=== PATIENT | female | born 2000 | race American Indian/Alaskan Native ===

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

== ENCOUNTER 2020-10-20 10:20 | Emergency (ER) | payer SELFPAY ==
--- NOTE | 2020-10-20 10:31 | Event Note ---
ED Screening Note ED Screening Note: suprapubic pain lmp 08/24 states she did not do home preg has no ob never been preg before pos white dc; not worried for sti This initial assessment/diagnostic orders/clinical plan/treatment(s) is/are subject to change based on patients health status, clinical progression and re- assessment by fellow clinical providers in the ED. Further treatment and workup at subsequent clinical providers discretion. Patient/guardian urged not to elope from the ED as their condition may be serious if not clinically assessed and managed. Initial orders include: ro /ectopic
[2020-10-20 10:37] VITALS: BP 136/91
[2020-10-20 12:00] LABS: Bilirubin,Urine NEG (Negative); Blood,Urine NEG (Negative); Color,Urine Yellow (Yellow); Mucus,Urine 1+ /HPF; Urobilinogen,Urine < 2.0 mg/dL (<2.0)
[2020-10-20 12:01] LABS: HCG Qualitative,Urine Positive (Negative)
--- NOTE | 2020-10-20 12:07 | Emergency Department Report ---
ED Dysuria HPI - HPI Chief Complaint: Abdominal Pain Stated Complaint: ABD PAIN, HEADACHE Time Seen by Provider: 10/20/20 10:30 Severity: Mild Symptoms: Dysuria: No, Frequency: No, Suprapubic Pain: Yes (mild cramping, int ermittently), Flank Pain: No, Fever: No, Hematuria: No, Abdominal Pain: No, Previous UTI's: No Other History: Patient is a 20-year-old female that comes to the emergency room complaining of nausea vomiting and headaches. Patient denies dysuria, back pain or abdominal pain. She indicates that over her suprapubic area she feels cramping. She denies fever or chills. She denies any vaginal discharge. She is not concerned for STIs. Last menstrual period 08/24. Patient was asked if she did a home test and she said no. Patient does not have an MANAGED SECURITY SALES CONSULTANT or primary care doctor. ED Review of Systems ROS: Stated complaint: ABD PAIN, HEADACHE Other details as noted in HPI Comment: All other systems reviewed and negative ED Past Medical Hx - Past Medical History Previous Medical History?: No - Surgical History Past Surgical History?: No - Family History Family history: no significant - Social History Smoking Status: Never Smoker Substance Use Type: None Dysuria Exam - Exam General: Vital signs noted. No distress. Alert and acting appropriately. Exam: Yes Moist Mucous Membranes, No CVA Tenderness, No Abdominal Tenderness, No Rigidity or Guarding Labs: Lab Results 10/20/20 Range/Units 10:42 Urine Color Yellow (Yellow) Urine Turbidity Slightly-cloudy (Clear) Urine pH 5.0 (5.0-7.0) Ur [place] 1.024 (1.003-1.030) Urine Protein 30 mg/dl (Negative) mg/dL Urine Glucose (UA) Neg (Negative) mg/dL Urine Ketones 20 (Negative) mg/dL Urine Blood Neg (Negative) Urine Nitrite Neg (Negative) Urine Bilirubin Neg (Negative) Urine Urobilinogen < 2.0 (<2.0) mg/dL Ur Leukocyte Esterase Tr (Negative) Urine WBC (Auto) 2.0 (0.0-6.0) /HPF Urine RBC (Auto) 3.0 (0.0-6.0) /HPF U Epithel Cells (Auto) 12.0 (0-13.0) /HPF Urine Mucus 1+ /HPF Urine HCG, Qual Positive A (Negative) ED Course Vital Signs 10/20/20 10:36 Temperature 99.1 F Pulse Rate 90 Respiratory 18 Rate Blood Pressure 136/91 [Right] O2 Sat by Pulse 98 Oximetry ED Medical Decision Making - Medical Decision Making Lab Results 10/20/20 Range/Units 10:42 Urine Color Yellow (Yellow) Urine Turbidity Slightly-cloudy (Clear) Urine pH 5.0 (5.0-7.0) Ur Specific [place] 1.024 (1.003-1.030) Urine Protein 30 mg/dl (Negative) mg/dL Urine Glucose (UA) Neg (Negative) mg/dL Urine Ketones 20 (Negative) mg/dL Urine Blood Neg (Negative) Urine Nitrite Neg (Negative) Urine Bilirubin Neg (Negative) Urine Urobilinogen < 2.0 (<2.0) mg/dL Ur Leukocyte Esterase Tr (Negative) Urine WBC (Auto) 2.0 (0.0-6.0) /HPF Urine RBC (Auto) 3.0 (0.0-6.0) /HPF U Epithel Cells (Auto) 12.0 (0-13.0) /HPF Urine Mucus 1+ /HPF Urine HCG, Qual Positive A (Negative) Vital Signs 10/20/20 10:36 Temperature 99.1 F Pulse Rate 90 Respiratory 18 Rate Blood Pressure 136/91 [Right] O2 Sat by Pulse 98 Oximetry UA noted. positive. Patient educated on the results of her test. She is quite happy at the findings. Patient verbalizes understanding of discharge plan of care including the need to follow-up with her MANAGED SECURITY SALES CONSULTANT. On discharge she has no abdominal pain. She has no nausea vomiting. She has no back pain. There is no dysuria. - Differential Diagnosis Rule out , UTI Critical care attestation.: If time is entered above; I have spent that time in minutes in the direct care of this critically ill patient, excluding procedure time. ED Disposition Clinical Impression: Disposition: DC-01 TO HOME OR SELFCARE Is pt being admited?: No Does the pt Need Aspirin: No Condition: Stable Instructions: First Trimester of , [id number], Abdominal Pain (ED) Additional Instructions: TYLENOL FOR PAIN NO DRUGS OR ALCOHOL HYDRATE WELL OVER THE COUNTER VITAMIN FOLLOW UP WITH [facility] REFERRAL BELOW Referrals: ETIENNE LE MD [Staff Physician] - 3-5 Days Time of Disposition: 12:06
== END 2020-10-20 12:13 | disposition home or self-care (01) ==
LOC: ED 10:20
DX: Z34.90 Encounter for supervision of normal pregnancy, unspecified, unspecified trimester (principal); Z79.899 Other long term (current) drug therapy
CPT/HCPCS: 81001; 81025; 99283

== ENCOUNTER 2020-10-31 14:01 | Emergency (ER) | payer SELFPAY ==
[2020-10-31 14:12] VITALS: BP 140/80
--- NOTE | 2020-10-31 14:32 | Emergency Department Report ---
ED Female HPI - General Chief complaint: Weakness Stated complaint: GEN WEAKNESS Source: EMS Mode of arrival: Ambulatory Limitations: No Limitations - History of Present Illness Initial comments: 20-year-old -[place] female who reports she is approximately 9 weeks presents to the emergency room for lower abdominal pain and vaginal spotting that started today. Patient reports she has had nausea and vomiting and has not had a bowel movement in 2 days. 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 Patient has not started her vitamins. She is 1 para 0. MD Complaint: vaginal bleeding, pelvic pain Onset/Timin -: days(s) Location: suprapubic Severity: mild Severity scale (0 -10): 4 Quality: cramping Consistency: intermittent Improves with: none Worsens with: none Are you Now?: Yes Associated Symptoms: vaginal bleeding, dysuria - Related Data Sexually active: Yes : 1 Previous Rx's Medication Instructions Recorded Last Taken Type 168/Iron/Folic/Omega3 1 each PO QDAY #90 capsule 10/31/20 Unknown Rx [One-A-Day -1 Softgel] Allergies Allergy/AdvReac Type Severity Reaction Status Date / Time No Known Allergies Allergy Unverified 07/09/13 21:45 ED Review of Systems ROS: Stated complaint: GEN WEAKNESS Other details as noted in HPI Comment: All other systems reviewed and negative ED Past Medical Hx - Past Medical History Previous Medical History?: No - Surgical History Past Surgical History?: No - Social History Smoking Status: Never Smoker Substance Use Type: None - Medications Home Medications: Home Medications Medication Instructions Recorded Confirmed Last Taken Type 168/Iron/Folic/Omega3 1 each PO QDAY #90 capsule 10/31/20 Unknown Rx [One-A-Day -1 Softgel] ED Physical Exam - General Limitations: No Limitations General appearance: alert, in no apparent distress - Head Head exam: Present: atraumatic, normocephalic - Eye Eye exam: Present: normal appearance - ENT ENT exam: Present: mucous membranes moist - Neck Neck exam: Present: normal inspection, full ROM - Respiratory Respiratory exam: Present: normal lung sounds bilaterally. Absent: respiratory distress - Cardiovascular Cardiovascular Exam: Present: regular rate, normal rhythm. Absent: systolic murmur, diastolic murmur, rubs, gallop - GI/Abdominal GI/Abdominal exam: Present: soft, tenderness, normal bowel sounds. Absent: distended - Extremities Exam Extremities exam: Present: normal inspection, full ROM - Back Exam Back exam: Present: normal inspection, full ROM - Neurological Exam Neurological exam: Present: alert, oriented X3, normal gait - Psychiatric Psychiatric exam: Present: normal affect, normal mood - Skin Skin exam: Present: warm, dry, intact, normal color. Absent: rash ED Course Vital Signs 10/31/20 14:08 Temperature 98.5 F Pulse Rate 85 Respiratory 20 Rate Blood Pressure 140/80 O2 Sat by Pulse 100 Oximetry ED Medical Decision Making - Lab Data Result diagrams: 10/31/20 14:35 10/31/20 14:35 - Radiology Data Radiology results: report reviewed Patient: LEIGH TORO MR#: [id number] : 2000 Acct:[id number] Age/Sex: 20 / F ADM Date: 10/31/20 Loc: ED Attending Dr: Ordering Physician: MELY ROPER Date of Service: 10/31/20 Procedure(s): US OB transvaginal Accession Number(s): [id number] cc: MELY ROPER ULTRASOUND OBSTETRIC Indication: with abdominal pain and spotting Findings: There is a single, living intrauterine . [place]-rump length = 1.6 cm = 8 weeks, 0 day(s). There is a cystlike lesion within the right ovary. This lesion measures 2.6 cm in diameter. The left ovary was not well visualized from overlying bowel gas. heart tones measured 156 bpm.. There is no free fluid. Impression: 1. Single, early intrauterine with estimated sonographic age of 8 weeks, 1 day(s). Short- term sonographic follow-up is suggested. 2. Nonspecific 2.2 cm cystlike lesion involving the right adnexa which is suboptimally visualized on this exam. This could represent a corpus luteal cyst but close attention on follow-up is recommended. Signer Name: Hebert Morton MD Signed: 10/31/2020 3:39 PM Workstation Name: [id number] Transcribed By: Dictated By: Hebert Morton MD Electronically Authenticated By: Hebert Morton MD Signed Date/Time: 10/31/201538 DD/ 36 TD/TT: - Medical Decision Making 20-year-old -[place] female who reports she is approximately 9 weeks presents to the emergency room for lower abdominal pain and vaginal spotting that started today. Patient reports she has had nausea and vomiting and has not had a bowel movement in 2 days. 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 Patient has not started her vitamins. She is 1 para 0. CBC CMP, urinalysis, lipase, hCG, ultrasound less than 14 weeks. Ultrasound shows your 8 weeks 1 day . Also shows that you have a cyst in your right adnexa. Critical care attestation.: If time is entered above; I have spent that time in minutes in the direct care of this critically ill patient, excluding procedure time. ED Disposition Clinical Impression: Qualifiers: Weeks of gestation: 8 weeks Qualified Code(s): Z3A.08 - 8 weeks gestation of Disposition: DC-01 TO HOME OR SELFCARE Is pt being admited?: No Does the pt Need Aspirin: No Condition: Stable Additional Instructions: Ultrasound shows your 8 weeks 1 day . Also shows that you have a cyst in your right adnexa. Recommend for you to follow-up with an VIDEO GAME REPAIR TECHNICIAN in to start your vitamins. Prescriptions: 168/Iron/Folic/Omega3 [One-A-Day -1 Softgel] 1 each PO QDAY #90 capsule Referrals: [facility] [Provider Group] - 3-5 Days [facility] [Provider Group] - 3-5 Days [facility] [Provider Group] - 3-5 Days
[2020-10-31 14:53] LABS: Basophils # (Auto) 0.1 K/mm3 (0.0-0.1); Basophils % (Auto) 1.1 % (0.0-1.8); Eosinophils # (Auto) 0.2 K/mm3 (0.0-0.4); Hematocrit 36.2 % (30.3-42.9); Hemoglobin 11.9 gm/dl (10.1-14.3); Lymphocytes # (Auto) 2.2 K/mm3 (1.2-5.4); Lymphocytes % (Auto) 23.3 % (13.4-35.0); Mean Corpuscular HGB Conc 33 % (30-34); Mean Corpuscular Volume 77 fl (79-97); Monocytes # (Auto) 0.9 K/mm3 (0.0-0.8); Monocytes % (Auto) 8.9 % (0.0-7.3); Platelet Count 358 K/mm3 (140-440); Red Blood Count 4.74 M/mm3 (3.65-5.03); Red Cell Distribution Width 16.8 % (13.2-15.2)
[2020-10-31 15:08] LABS: Alanine Aminotransferase 10 units/L (7-56); Albumin 4.1 g/dL (3.9-5); Blood Urea Nitrogen 6 mg/dL (7-17); Hemolysis Index 1
[2020-10-31 15:11] LABS: BUN/Creatinine Ratio 10
--- NOTE | 2020-10-31 15:44 | Ultrasound Report ---
ULTRASOUND OBSTETRIC Indication: with abdominal pain and spotting Findings: There is a single, living intrauterine . [place]-rump length = 1.6 cm = 8 weeks, 0 day(s). There is a cystlike lesion within the right ovary. This lesion measures 2.6 cm in diameter. The left ovary was not well visualized from overlying bowel gas. heart tones measured 156 bpm.. There is no free fluid. Impression: 1. Single, early intrauterine with estimated sonographic age of 8 weeks, 1 day(s). Short-te sonographic follow-up is suggested. 2. Nonspecific 2.2 cm cystlike lesion involving the right adnexa which is suboptimally visualized on this exam. This could represent a corpus luteal cyst but close attention on follow-up is recommended. Signer Name: Hebert Morton MD Signed: 10/31/2020 3:39 PM Workstation Name: [id number]
[2020-10-31 16:02] LABS: Bacteria,Urine 2+ /HPF (Negative); Mucus,Urine FEW /HPF
[2020-10-31 16:30] LABS: Bilirubin,Urine NEG (Negative); Blood,Urine NEG (Negative); Color,Urine Yellow (Yellow); Protein,Urine <15 mg/dL mg/dL (Negative); Urobilinogen,Urine < 2.0 mg/dL (<2.0)
== END 2020-10-31 16:53 | disposition home or self-care (01) ==
LOC: ED 14:01
DX: O26.891 Other specified pregnancy related conditions, first trimester (principal); R53.1 Weakness; Z79.899 Other long term (current) drug therapy; Z3A.08 8 weeks gestation of pregnancy
CPT/HCPCS: 36415; 76801; 76817; 80053; 81001; 83690; 84702; 85025; 86900; 86901

== ENCOUNTER 2020-11-09 12:28 | Emergency (ER) | payer MEDICAID ==
[2020-11-09] MEDS ORDERED: SODIUM CHLORIDE 0.9% 1000 ML 1,000 ML IV ONE (12:45)
--- NOTE | 2020-11-09 13:27 | Emergency Department Report ---
ED HPI - General Chief complaint: Abdominal Pain Stated complaint: 10WKS PAIN IN STOMACH Time Seen by Provider: 11/09/20 12:44 Source: patient Mode of arrival: Ambulatory Limitations: No Limitations - History of Present Illness Initial comments: This is a 20-year-old female nontoxic, well nourished in appearance, no acute signs of distress presents to the ED with c/o of nausea, pelvic cramping and dizziness that started 3 days ago. Patient stated she is currently about 12 weeks . Patient denies any vaginal bleeding. Denies any radiation of pain.. Patient denies any vomiting. Patient stated she has not eaten a lot or drank due to nausea and believes that is where her dizziness is from. Patient describes pelvic pain as cramping and aching with level of 3/10 diffuse. Patient denies chest pain, short of breath, fever, hemoptysis, blood in stool, chills, headache, stiff neck, numbness or tingling. Patient denies any diarrhea or constipation. Denies any blood in stool. Patient denies any recent travels. Patient denies any allergies or significant past medical history. -: days(s) Location: pelvis Radiation: none Severity: mild Severity scale (0 -10): 3 Quality: cramping Consistency: constant Improves with: none Worsens with: none Associated symptoms: nausea/vomiting. denies: vaginal bleeding, vaginal discharge, abdominal pain, dysuria, headache, vision changes, malaise, dysparuenia, rash, seizure, shortness of breath, syncope, weakness Vaginal bleeding: none :: Yes Pre- care: followed by OB - Related Data Previous Rx's Medication Instructions Recorded Last Taken Type 168/Iron/Folic/Omega3 1 each PO QDAY #90 capsule 10/31/20 Unknown Rx [One-A-Day -1 Softgel] Allergies Allergy/AdvReac Type Severity Reaction Status Date / Time No Known Allergies Allergy Unverified 07/09/13 21:45 ED Review of Systems ROS: Stated complaint: 10WKS PAIN IN STOMACH Other details as noted in HPI Comment: All other systems reviewed and negative Constitutional: denies: chills, fever Eyes: denies: eye pain, eye discharge, vision change ENT: denies: ear pain, throat pain Respiratory: denies: cough, shortness of breath, wheezing Cardiovascular: denies: chest pain, palpitations Endocrine: no symptoms reported Gastrointestinal: nausea. denies: abdominal pain, vomiting, diarrhea, constipation, hematemesis, melena, hematochezia Genitourinary: denies: urgency, dysuria, discharge Musculoskeletal: denies: back pain, joint swelling, arthralgia Skin: denies: rash, lesions Neurological: vertigo. denies: headache, weakness, paresthesias Psychiatric: denies: anxiety, depression Hematological/Lymphatic: denies: easy bleeding, easy bruising ED Past Medical Hx - Past Medical History Previous Medical History?: No - Surgical History Past Surgical History?: No - Social History Smoking Status: Never Smoker Substance Use Type: None - Medications Home Medications: Home Medications Medication Instructions Recorded Confirmed Last Taken Type 168/Iron/Folic/Omega3 1 each PO QDAY #90 capsule 10/31/20 Unknown Rx [One-A-Day -1 Softgel] ED Physical Exam - General Limitations: No Limitations General appearance: alert, in no apparent distress - Head Head exam: Present: atraumatic, normocephalic - Eye Eye exam: Present: normal appearance, PERRL, EOMI - Neck Neck exam: Present: normal inspection, full ROM. Absent: tenderness, meningism us, lymphadenopathy - Respiratory Respiratory exam: Present: normal lung sounds bilaterally. Absent: respiratory distress, wheezes, rales, rhonchi, stridor, chest wall tenderness, accessory muscle use, decreased breath sounds, prolonged expiratory - Cardiovascular Cardiovascular Exam: Present: regular rate, normal rhythm, normal heart sounds. Absent: bradycardia, tachycardia, irregular rhythm, systolic murmur, diastolic murmur, rubs, gallop - GI/Abdominal GI/Abdominal exam: Present: soft, normal bowel sounds. Absent: distended, tenderness, guarding, rebound, rigid, diminished bowel sounds - Extremities Exam Extremities exam: Present: normal inspection, full ROM - Back Exam Back exam: Present: normal inspection, full ROM - Neurological Exam Neurological exam: Present: alert, oriented X3, normal gait - Psychiatric Psychiatric exam: Present: normal affect, normal mood - Skin Skin exam: Present: warm, dry, intact, normal color. Absent: rash ED Course Vital Signs 11/09/20 12:42 Temperature 98.7 F Pulse Rate 79 Respiratory 16 Rate Blood Pressure 127/94 O2 Sat by Pulse 98 Oximetry - Reevaluation(s) Reevaluation #1: 11/09/20 13:26 Patient is speaking in full sentences with no signs of distress noted. ED Medical Decision Making - Lab Data Result diagrams: 11/09/20 13:03 11/09/20 13:03 Lab Results 11/09/20 11/09/20 11/09/20 Range/Units 13:03 13:03 13:03 WBC 8.0 (4.5-11.0) K/mm3 RBC 4.86 (3.65-5.03) M/mm3 Hgb 12.2 (10.1-14.3) gm/dl Hct 37.1 (30.3-42.9) % MCV 76 L (79-97) fl MCH 25 L (28-32) pg MCHC 33 (30-34) % RDW 16.9 H (13.2-15.2) % Plt Count 382 (140-440) K/mm3 Lymph % (Auto) 19.1 (13.4-35.0) % [place] % (Auto) 6.3 (0.0-7.3) % Eos % (Auto) 0.9 (0.0-4.3) % Baso % (Auto) 0.7 (0.0-1.8) % Lymph # (Auto) 1.5 (1.2-5.4) K/mm3 [place] # (Auto) 0.5 (0.0-0.8) K/mm3 Eos # (Auto) 0.1 (0.0-0.4) K/mm3 Baso # (Auto) 0.1 (0.0-0.1) K/mm3 Seg Neutrophils % 73.0 H (40.0-70.0) % Seg Neutrophils # 5.9 (1.8-7.7) K/mm3 Sodium 135 L (137-145) mmol/L Potassium 3.8 (3.6-5.0) mmol/L Chloride 104.0 (98-107) mmol/L Carbon Dioxide 21 L (22-30) mmol/L Anion Gap 14 mmol/L BUN 4 L (7-17) mg/dL Creatinine 0.4 L (0.6-1.2) mg/dL Estimated GFR > 60 ml/min BUN/Creatinine Ratio 10 % Glucose 84 (65-100) mg/dL Calcium 8.8 (8.4-10.2) mg/dL HCG, Quant 75454 H (0-4) mIU/mL - Radiology Data Referring Physician: GARRY LEWIS Patient Name: LEIGH TORO Date of : 2000 Sex: Female Report Date: 2020-11-09 Report Status: Finalized [facility] [address] [place] [address] Ultrasound Report Signed Patient: LEIGH TORO MR#: [id number] : 2000 Acct:[id number] Age/Sex: 20 / F ADM Date: 11/09/20 Loc: ED Attending Dr: Ordering Physician: GARRY LEWIS NP Date of Service: 11/09/20 Procedure(s): US OB transvaginal Accession Number(s): [id number] cc: GARRY LEWIS NP US OB <= 14 WEEKS FETUS US OB TRANSVAGINAL INDICATION / CLINICAL INFORMATION: pelvic pain. COMPARISON: 10/31/2020 FINDINGS: Transabdominal and transvaginal imaging was performed. Intrauterine gestational sac is noted with pole and yolk sac. [place]-rump length is 2.1 cm (8 weeks 5 days). No embryonic cardiac activity was detected. There is a 3 cm left ovarian cyst. Right ovary is unremarkable. There is trace free fluid in the cul-de-sac. IMPRESSION: 1. Intrauterine gestational sac with pole and yolk sac. [place]- rump length corresponds with a sonographic gestational age of 8 weeks, 5 days. No embryonic cardiac activity was detected on today's exam. Correlation with serial beta hCG levels is recommended. Signer Name: Braeden Enriquez MD Signed: 11/09/2020 4:11 PM Workstation Name: [id number] Transcribed By: PAOLA Dictated By: Braeden Enriquez MD Electronically Authenticated By: Braeden Enriquez MD Signed Jose Alfredo e/Time: 11/09/20 1611 DD/ 1609 TD/TT: Referring Physician: GARRY LEWIS Patient Name: LEIGH TORO Date of : 2000 Sex: Female Report Date: 2020-11-09 Report Status: Finalized [facility] [address] [place] [address] Ultrasound Report Signed Patient: LEIGH TORO MR#: [id number] : 2000 Acct:[id number] Age/Sex: 20 / F ADM Date: 11/09/20 Loc: ED Attending Dr: Ordering Physician: GARRY LEWIS NP Date of Service: 11/09/20 Procedure(s): US OB <= 14 weeks fetus Accession Number(s): [id number] cc: GARRY LEWIS NP US OB <= 14 WEEKS FETUS US OB TRANSVAGINAL INDICATION / CLINICAL INFORMATION: pelvic pain. COMPARISON: 10/31/2020 FINDINGS: Transabdominal and transvaginal imaging was performed. Intrauterine gestational sac is noted with pole and yolk sac. [place]-rump length is 2.1 cm (8 weeks 5 days). No embryonic cardiac activity was detected. There is a 3 cm left ovarian cyst. Right ovary is unremarkable. There is trace free fluid in the cul-de-sac. IMPRESSION: 1. Intrauterine gestational sac with pole and yolk sac. [place]- rump length corresponds with a sonographic gestational age of 8 weeks, 5 days. No embryonic cardiac activity was detected on today's exam. Correlation with serial beta hCG levels is recommended. Signer Name: Braeden Enriquez MD Signed: 11/09/2020 4:11 PM Workstation Name: [id number] Transcribed By: Dictated By: Braeden Enriquez MD Electronically Authenticated By: Braeden Enriquez MD Signed Date/Time: 11/09/20 1611 DD/ 160 TD/TT: - Medical Decision Making This is a 20-year-old female that presents with dizziness secondary to some dehydration, nausea and pelvic pain dependency. Patient stable and was examined by me. Patient is notified of the ultrasound report and labs with no questions noted by the patient. Instructed her to follow-up with her OBGYN due to no heart beat. Patient received 1 L normal saline which she states she feels much better and I will discharge patient and was instructed to increase hydration. Patient was instructed to follow-up with a GAS PUMP ATTENDANT in 3-5 days or if symptoms worsen and continue return to emergency room as soon as possible. At time of discharge, the patient does not seem toxic or ill in appearance. No acute signs of distress noted. Patient agrees to discharge treatment plan of care. No further questions noted by the patient. Critical care attestation.: If time is entered above; I have spent that time in minutes in the direct care of this critically ill patient, excluding procedure time. ED Disposition Clinical Impression: Dizziness, Dehydration, Nausea, Pelvic pain during Disposition: DC-01 TO HOME OR SELFCARE Is pt being admited?: No Does the pt Need Aspirin: No Condition: Stable Instructions: Abdominal Pain During , [id number], Dehydration, Adult, [id number], Dizziness, Abdominal Pain (ED) Additional Instructions: Follow-up with a GAS PUMP ATTENDANT doctor in 3-5 days or if symptoms worsen and continue return to emergency room as soon as possible. Referrals: [facility] [Primary Care Provider] - 3-5 Days [facility] [Provider Group] - 3-5 Days [facility] [Provider Group] - 3-5 Days Forms: Work/School Release Form(ED) Time of Disposition: 16:29
[2020-11-09 13:40] LABS: Basophils # (Auto) 0.1 K/mm3 (0.0-0.1); Basophils % (Auto) 0.7 % (0.0-1.8); Eosinophils # (Auto) 0.1 K/mm3 (0.0-0.4); Eosinophils % (Auto) 0.9 % (0.0-4.3); Hematocrit 37.1 % (30.3-42.9); Hemoglobin 12.2 gm/dl (10.1-14.3); Lymphocytes # (Auto) 1.5 K/mm3 (1.2-5.4); Lymphocytes % (Auto) 19.1 % (13.4-35.0); Mean Corpuscular HGB Conc 33 % (30-34); Mean Corpuscular Volume 76 fl (79-97); Monocytes # (Auto) 0.5 K/mm3 (0.0-0.8); Monocytes % (Auto) 6.3 % (0.0-7.3); Platelet Count 382 K/mm3 (140-440); Red Blood Count 4.86 M/mm3 (3.65-5.03); Red Cell Distribution Width 16.9 % (13.2-15.2)
[2020-11-09 14:03] LABS: Blood Urea Nitrogen 4 mg/dL (7-17); Calcium 8.8 mg/dL (8.4-10.2); Hemolysis Index 1
[2020-11-09 14:04] LABS: BUN/Creatinine Ratio 10
--- NOTE | 2020-11-09 16:15 | Ultrasound Report ---
US OB <= 14 WEEKS FETUS US OB TRANSVAGINAL INDICATION / CLINICAL INFORMATION: pelvic pain. COMPARISON: 10/31/2020 FINDINGS: Transabdominal and transvaginal imaging was performed. Intrauterine gestational sac is noted with pole and yolk sac. [place]-rump length is 2.1 cm (8 we eks 5 days). No embryonic cardiac activity was detected. There is a 3 cm left ovarian cyst. Right ovary is unremarkable. There is trace free fluid in the cul-de-sac. IMPRESSION: 1. Intrauterine gestational sac with pole and yolk sac. [place]-rump length corresponds with a so nographic gestational age of 8 weeks, 5 days. No embryonic cardiac activity was detected on today's e xam. Correlation with serial beta hCG levels is recommended. Signer Name: Braeden Enriquez MD Signed: 11/09/2020 4:11 PM Workstation Name: [id number]
--- NOTE | 2020-11-09 16:15 | Ultrasound Report ---
US OB <= 14 WEEKS FETUS US OB TRANSVAGINAL INDICATION / CLINICAL INFORMATION: pelvic pain. COMPARISON: 10/31/2020 FINDINGS: Transabdominal and transvaginal imaging was performed. Intrauterine gestational sac is noted with pole and yolk sac. [place]-rump length is 2.1 cm (8 we eks 5 days). No embryonic cardiac activity was detected. There is a 3 cm left ovarian cyst. Right ovary is unremarkable. There is trace free fluid in the cul-de-sac. IMPRESSION: 1. Intrauterine gestational sac with pole and yolk sac. [place]-rump length corresponds with a so nographic gestational age of 8 weeks, 5 days. No embryonic cardiac activity was detected on today's e xam. Correlation with serial beta hCG levels is recommended. Signer Name: Braeden Enriquez MD Signed: 11/09/2020 4:11 PM Workstation Name: [id number]
[2020-11-09 17:06] VITALS: BP 129/69
== END 2020-11-09 17:06 | disposition home or self-care (01) ==
LOC: ED 12:28
DX: O26.891 Other specified pregnancy related conditions, first trimester (principal); R10.2 Pelvic and perineal pain; R42 Dizziness and giddiness; E86.0 Dehydration; R11.0 Nausea; Z3A.12 12 weeks gestation of pregnancy; Z79.899 Other long term (current) drug therapy
CPT/HCPCS: 36415; 76801; 76817; 80048; 84702; 85025; 96360; 99284; J7030

== ENCOUNTER 2020-12-11 23:50 | Emergency (ER) | payer MEDICAID ==
[2020-12-12 00:31] LABS: Basophils # (Auto) 0.1 K/mm3 (0.0-0.1); Basophils % (Auto) 1.1 % (0.0-1.8); Eosinophils # (Auto) 0.5 K/mm3 (0.0-0.4); Eosinophils % (Auto) 5.3 % (0.0-4.3); Hematocrit 35.4 % (30.3-42.9); Hemoglobin 12.1 gm/dl (10.1-14.3); Lymphocytes # (Auto) 2.9 K/mm3 (1.2-5.4); Lymphocytes % (Auto) 30.2 % (13.4-35.0); Mean Corpuscular HGB Conc 34 % (30-34); Mean Corpuscular Volume 77 fl (79-97); Monocytes # (Auto) 0.7 K/mm3 (0.0-0.8); Monocytes % (Auto) 7.4 % (0.0-7.3); Platelet Count 345 K/mm3 (140-440); Red Blood Count 4.62 M/mm3 (3.65-5.03); Red Cell Distribution Width 15.5 % (13.2-15.2)
[2020-12-12 00:44] LABS: Bilirubin,Urine NEG (Negative); Blood,Urine LG (Negative); Color,Urine Yellow (Yellow); Mucus,Urine FEW /HPF; Protein,Urine <15 mg/dL mg/dL (Negative); Urobilinogen,Urine < 2.0 mg/dL (<2.0)
--- NOTE | 2020-12-12 02:28 | Ultrasound Report ---
ULTRASOUND OBSTETRIC INDICATION / CLINICAL INFORMATION: vaginal bleeding. TECHNIQUE: Transabdominal. COMPARISON: OB ultrasound 11/09/2020 FINDINGS: GESTATIONAL SAC: Irregular intrauterine gestational sac. YOLK SAC: No longer visualized EMBRYO/FETUS: No longer visualized. ADNEXA: No significant abnormality. FREE FLUID: None. ADDITIONAL FINDINGS: None. IMPRESSION: 1. Spontaneous with intrauterine cystic structure/blighted ovum. Signer Name: Ty Barriga MD Signed: 12/12/2020 2:24 AM Workstation Name: [id number]
--- NOTE | 2020-12-12 03:59 | Emergency Department Report ---
ED Female HPI - General Chief complaint: Vaginal Bleeding Stated complaint: VAGINAL BLEEDING/ABD PAIN Time Seen by Provider: 12/12/20 01:10 Source: patient Mode of arrival: Stretcher Limitations: No Limitations - History of Present Illness Initial comments: 10-year-old asthmatic female resents emergency department complaining of being about 14 weeks 14 to 15 weeks and having some heavy vaginal bleeding today associated with some large blood clots presents emerged department for further valuation and treatment options no fever, chills, sweats, no chest pain no palpitation, no known trauma that she reports. MD Complaint: vaginal bleeding -: Gradual Radiation: non-radiating Severity: mild Quality: dull Consistency: constant Worsens with: none Are you Now?: Yes - Related Data Previous Rx's Medication Instructions Recorded Last Taken Type 168/Iron/Folic/Omega3 1 each PO QDAY #90 capsule 10/31/20 Unknown Rx [One-A-Day -1 Softgel] Allergies Allergy/AdvReac Type Severity Reaction Status Date / Time No Known Allergies Allergy Unverified 07/09/13 21:45 ED Review of Systems ROS: Stated complaint: VAGINAL BLEEDING/ABD PAIN Other details as noted in HPI Comment: All other systems reviewed and negative ED Past Medical Hx - Past Medical History Previous Medical History?: No - Surgical History Past Surgical History?: No - Social History Smoking Status: Never Smoker Substance Use Type: None - Medications Home Medications: Home Medications Medication Instructions Recorded Confirmed Last Taken Type 168/Iron/Folic/Omega3 1 each PO QDAY #90 capsule 10/31/20 Unknown Rx [One-A-Day -1 Softgel] ED Physical Exam - General Limitations: No Limitations General appearance: alert, in no apparent distress - Head Head exam: Present: atraumatic, normocephalic - Eye Eye exam: Present: normal appearance, PERRL, EOMI Pupils: Present: normal accommodation - ENT ENT exam: Present: mucous membranes moist - Neck Neck exam: Present: normal inspection - Respiratory Respiratory exam: Present: normal lung sounds bilaterally. Absent: respiratory distress - Cardiovascular Cardiovascular Exam: Present: regular rate, normal rhythm. Absent: systolic murmur, diastolic murmur, rubs, gallop - GI/Abdominal GI/Abdominal exam: Present: soft, tenderness (Mild suprapubic cramping pain), normal bowel sounds - Extremities Exam Extremities exam: Present: normal inspection - Back Exam Back exam: Present: normal inspection - Neurological Exam Neurological exam: Present: alert, oriented X3 - Psychiatric Psychiatric exam: Present: normal affect, normal mood - Skin Skin exam: Present: warm, dry, intact, normal color. Absent: rash ED Course Vital Signs 12/11/20 12/12/20 12/12/20 23:57 00:46 02:45 Temperature 98.5 F 98.4 F Pulse Rate 88 83 Respiratory 16 16 Rate Blood Pressure 114/40 Blood Pressure 119/82 [Left] O2 Sat by Pulse 100 99 100 Oximetry ED Medical Decision Making - Lab Data Result diagrams: 12/12/20 00:08 Lab Results 12/12/20 12/12/20 12/12/20 Range/Units 00:08 00:08 00:08 WBC 9.5 (4.5-11.0) K/mm3 RBC 4.62 (3.65-5.03) M/mm3 Hgb 12.1 (10.1-14.3) gm/dl Hct 35.4 (30.3-42.9) % MCV 77 L (79-97) fl MCH 26 L (28-32) pg MCHC 34 (30-34) % RDW 15.5 H (13.2-15.2) % Plt Count 345 (140-440) K/mm3 Lymph % (Auto) 30.2 (13.4-35.0) % [place] % (Auto) 7.4 H (0.0-7.3) % Eos % (Auto) 5.3 H (0.0-4.3) % Baso % (Auto) 1.1 (0.0-1.8) % Lymph # (Auto) 2.9 (1.2-5.4) K/mm3 [place] # (Auto) 0.7 (0.0-0.8) K/mm3 Eos # (Auto) 0.5 H (0.0-0.4) K/mm3 Baso # (Auto) 0.1 (0.0-0.1) K/mm3 Seg Neutrophils % 56.0 (40.0-70.0) % Seg Neutrophils # 5.3 (1.8-7.7) K/mm3 HCG, Quant 83472 H (0-4) mIU/mL Urine Color Yellow (Yellow) Urine Turbidity Clear (Clear) Urine pH 6.0 (5.0-7.0) Ur Specific [place] 1.016 (1.003-1.030) Urine Protein <15 mg/dl (Negative) mg/dL Urine Glucose (UA) Neg (Negative) mg/dL Urine Ketones Neg (Negative) mg/dL Urine Blood Lg (Negative) Urine Nitrite Neg (Negative) Urine Bilirubin Neg (Negative) Urine Urobilinogen < 2.0 (<2.0) mg/dL Ur Leukocyte Esterase Neg (Negative) Urine WBC (Auto) 1.0 (0.0-6.0) /HPF Urine RBC (Auto) 2.0 (0.0-6.0) /HPF U Epithel Cells (Auto) 5.0 (0-13.0) /HPF Urine Mucus Few /HPF Blood Type 12/12/20 Range/Units 00:08 WBC (4.5-11.0) K/mm3 RBC (3.65-5.03) M/mm3 Hgb (10.1-14.3) gm/dl Hct (30.3-42.9) % MCV (79-97) fl MCH (28-32) pg MCHC (30-34) % RDW (13.2-15.2) % Plt Count (140-440) K/mm3 Lymph % (Auto) (13.4-35.0) % [place] % (Auto) (0.0-7.3) % Eos % (Auto) (0.0-4.3) % Baso % (Auto) (0.0-1.8) % Lymph # (Auto) (1.2-5.4) K/mm3 [place] # (Auto) (0.0-0.8) K/mm3 Eos # (Auto) (0.0-0.4) K/mm3 Baso # (Auto) (0.0-0.1) K/mm3 Seg Neutrophils % (40.0-70.0) % Seg Neutrophils # (1.8-7.7) K/mm3 HCG, Quant (0-4) mIU/mL Urine Color (Yellow) Urine Turbidity (Clear) Urine pH (5.0-7.0) Ur Specific [place] (1.003-1.030) Urine Protein (Negative) mg/dL Urine Glucose (UA) (Negative) mg/dL Urine Ketones (Negative) mg/dL Urine Blood (Negative) Urine Nitrite (Negative) Urine Bilirubin (Negative) Urine Urobilinogen (<2.0) mg/dL Ur Leukocyte Esterase (Negative) Urine WBC (Auto) (0.0-6.0) /HPF Urine RBC (Auto) (0.0-6.0) /HPF U Epithel Cells (Auto) (0-13.0) /HPF Urine Mucus /HPF Blood Type O POSITIVE - Radiology Data Radiology results: report reviewed [address] [place] [id number] Ultrasound Report Signed Patient: LEIGH TORO MR#: [id number] : 2000 Acct:[id number] Age/Sex: 20 / F ADM Date: 12/11/20 Loc: ED Attending Dr: Ordering Physician: ED MD SANDRA Date of Service: 12/12/20 Procedure(s): US OB >= 14 wk fetus add gest Accession Number(s): [id number] cc: ED MD SANDRA ULTRASOUND OBSTETRIC INDICATION / CLINICAL INFORMATION: vaginal bleeding. TECHNIQUE: Transabdominal. COMPARISON: OB ultrasound 11/09/2020 FINDINGS: GESTATIONAL SAC: Irregular intrauterine gestational sac. YOLK SAC: No longer visualized EMBRYO/FETUS: No longer visualized. ADNEXA: No significant abnormality. FREE FLUID: None. ADDITIONAL FINDINGS: None. IMPRESSION: 1. Spontaneous with intrauterine cystic structure/blighted ovum. Signer Name: Ty Barriga MD Signed: 12/12/2020 2:24 AM Workstation Name: [id number] Transcribed By: TL Dictated By: Ty Barriga MD Electronically Authenticated By: Ty Barriga MD Signed Date/Time: 12/12/20223 DD/ 1 TD/TT: Print Cancel - Medical Decision Making Female presents emergency department with over 1 day days of episodic vaginal bleeding likely of a nonemergent etiology. Based on the history, examination, the ED work-up patient's presentation not consistent with an ectopic , molar , life threatening coagulopathy, serious bacterial infection, central process or other emergency. It does appear to be secondary to a spontaneous miscarriage occurred in when compared to the ultrasound was obtained and October 2020. Patient's bleeding is most likely secondary to, fibroids, or the nonemergent cause of abnormal uterine bleeding. No vaginal tears were appreciated on examination Disposition: We will discharge home with return precautions and instructions for prompt SOCIAL SERVICE MANAGER follow-up Critical care attestation.: If time is entered above; I have spent that time in minutes in the direct care of this critically ill patient, excluding procedure time. ED Disposition Clinical Impression: Spontaneous Disposition: - TO HOME OR SELFCARE Is pt being admited?: No Does the pt Need Aspirin: No Condition: Stable Instructions: Miscarriage, Managing Loss Referrals: MEE LANE MD [Primary Care Provider] - 3-5 Days SOCIAL SERVICE MANAGER, YOUR [Other] - 12/13/20
[2020-12-12 04:40] VITALS: BP 113/32
== END 2020-12-12 04:42 | disposition home or self-care (01) ==
LOC: ED 23:50
DX: O03.9 Complete or unspecified spontaneous abortion without complication (principal); Z3A.14 14 weeks gestation of pregnancy; Z79.899 Other long term (current) drug therapy
CPT/HCPCS: 36415; 76801; 76810; 81001; 84702; 85025; 86900; 86901